=== PATIENT | female | born 1950 | race Caucasian/White ===

== ENCOUNTER 2020-07-06 19:36 | Emergency (ER) | payer MEDICARE ==
[~2020-07-06] VITALS: Ht 172.7 cm; Wt 81.8 kg
[~2020-07-06 19:36] MED LIST: ASPIRIN 81M81 MG/TA2 PO; CALCIUM1 CAP PO; CRESTOR 10MG10 MG PO; CRESTOR5 MG PO; DUO-KAPS1 CAP PO; HCTZ12.5TAB PO; JANUVIA 100MG100 MG PO; JANUVIA25 MG PO; NORVASC 5MG5 MG/TAB PO; NORVASC2.5 MG PO; PRINIVIL2.5 MG PO; PRINIVIL40 MG PO
[2020-07-06 19:46] VITALS: TEMP 98.1
[2020-07-06] MEDS ORDERED: TYLENOL 325MG325 MG PO (21:26)
[2020-07-06] MEDS ORDERED: MOTRIN 400400 MG/TAB PO (21:26)
[2020-07-06 22:07] VITALS: BP 137/84; PULSE 68
== END 2020-07-06 22:07 | disposition home or self-care (01) ==
LOC: COL.ER 19:36
DX: S82.851A Displaced trimalleolar fracture of right lower leg, initial encounter for closed fracture (principal); Z88.8 Allergy status to other drugs, medicaments and biological substances; Z79.82 Long term (current) use of aspirin; W19.XXXA Unspecified fall, initial encounter
CPT/HCPCS: J1885; J2250; J2704; J7030